=== PATIENT | male | born 1975 | race Caucasian/White ===

== ENCOUNTER → 2016-06-11 | Outpatient (CLI) | payer OTHER | LOC: FIMAGING 07:34 | PROVIDERS: ATTEND Internal Medicine | DX: E04.1 Nontoxic single thyroid nodule (principal); Z20.2 Contact with and (suspected) exposure to infections with a predominantly sexual mode of transmission; Z72.51 High risk heterosexual behavior ==

== ENCOUNTER → 2016-06-25 | Outpatient (CLI) | payer OTHER ==
[~2016-06-25] MED LIST: GADOBUTROL 10 ML VIAL IVP ONE
== END ==
LOC: FIMAGING 17:44
PROVIDERS: ATTEND Internal Medicine
DX: R47.89 Other speech disturbances (principal)
CPT/HCPCS: A9585

== ENCOUNTER 2016-09-25 07:48 | Observation (INO) | payer OTHER ==
[2016-09-25] MEDS ORDERED: LIDO/EPI 1% **Not for Epidural 20 ML MDV ONE (08:08)
[2016-09-25] MEDS ORDERED: DEXAMETHASONE 4 MG/ML VIAL ONE ×2 (08:50)
[2016-09-25] MEDS ORDERED: CEFAZOLIN 2 GM/DEXTROSE/100 ML BAG IV ONE (08:50)
[2016-09-25] MEDS ORDERED: LR 1,000 ML IV ONE (08:56)
[2016-09-25] MEDS ORDERED: MIDAZOLAM 2 MG/2 ML VIAL ONE (09:36)
[2016-09-25] MEDS ORDERED: fentaNYL 100 MCG/2 ML INJ ONE ×4 (09:40→12:39)
[2016-09-25] MEDS ORDERED: PROPOFOL/EMULSION 500 MG/50 ML BOTTLE IV ONE (09:41)
[2016-09-25] MEDS ORDERED: LIDOCAINE 2% 5 ML SDV ONE (09:59)
[2016-09-25] MEDS ORDERED: SUGAMMADEX SODIUM 200 MG/2 ML VIAL IVP ONE (09:59)
[2016-09-25] MEDS ORDERED: RANITIDINE 50 MG/2 ML VIAL ONE (09:59)
[2016-09-25] MEDS ORDERED: ONDANSETRON 4 MG/2 ML VIAL ONE ×2 (09:59)
[2016-09-25] MEDS ORDERED: ROCURONIUM 50 MG/5 ML VIAL ONE (09:59)
[2016-09-25] MEDS ORDERED: DIAZEPAM 10 MG/2 ML SYR ONE (10:01)
[2016-09-25] MEDS ORDERED: PROPOFOL 200 MG/20 ML VIAL ONE (10:35)
[2016-09-25] MEDS ORDERED: ONDANSETRON 4 MG/2 ML VIAL IVP PRN (12:25)
[2016-09-25] MEDS ORDERED: OXYCODONE/APAP 5/325 TAB ONE (13:26)
[2016-09-25] MEDS: D5W 1/2 NS W/ 20 KCl/L 1,000 ML IV SCH (16:00)
[2016-09-25] MEDS: OXYCODONE/APAP 5/325 TAB PO PRN ×2 (18:01→22:09)
--- NOTE | 2016-09-25 18:53 | SOAPPROG ---
SOAP Progress Note Assessment/Plan: Assessment: PT doing well. Plan: Likely discharge in the morning. We reviewed all the care instructions and the patient already has all his discharge meds at home. 09/25/16 18:50 Subjective: Minimal pain, and less pressure than he had preop. He just ate a meal. Objective: Vital Signs Temp Pulse Resp BP Pulse Ox 36.7 C 77 16 130/89 H 94 09/25/16 18:18 09/25/16 18:18 09/25/16 18:18 09/25/16 18:18 09/25/16 18:18 09/24/16 09/25/16 09/26/16 05:59 05:59 05:59 Intake Total 1070 Output Total 200 Balance 870 Pt looks good. Minimal blood tinged discharge in the SAMI drain. Neck is flat. - Pending Discharge Pending Discharge Within 24 Hours: Yes Pending Discharge Date: 09/26/16 Pending Discharge Time: 11:00 ICD10 Worksheet Patient Problems: Problems Problem Status Onset Thyroid adenoma Acute - ICD10 Problem Qualifiers (1) Thyroid adenoma
--- NOTE | 2016-09-25 19:10 | GOP ---
[f rep st] OPERATIVE REPORT DATE OF OPERATION: 09/25/2016 SURGEON: Zach Davis MD TRANSMISSION AND PROTECTION ENGINEER: Dr. Lon Whaley. ANESTHESIA: General. PREOPERATIVE DIAGNOSIS: Right thyroid mass. POSTOPERATIVE DIAGNOSIS: Right thyroid mass. PROCEDURE PERFORMED: Right thyroid lobectomy. FINDINGS: The recurrent laryngeal nerve and both of the parathyroid glands were identified and preserved. Frozen section evaluation was negative for evidence of malignancy. SPECIMENS: Right thyroid lobe. ESTIMATED BLOOD LOSS: 25 cc INDICATIONS: The patient is a 41-year-old male with a right-sided thyroid mass. Initial fine-needle aspiration biopsy was negative; however, Afirma Testing was positive. He presents for thyroid lobectomy for definitive diagnosis. DESCRIPTION OF PROCEDURE: Patient was taken to the OR and positively identified , placed on monitors and general endotracheal anesthesia was induced. The table was then positioned. The patient was prepped and draped in a normal sterile fashion. An incision was marked out along the anterior neck skin crease and infiltrated with 4 cc of 1% lidocaine with 1:100,000 epinephrine. The skin was sharply incised. Dissection was carried down through the platysma. Superior and inferior subplatysmal flaps were then raised and secured. The strap muscles were then divided in the midline and elevated off the right thyroid gland. The superior vascular pedicle was isolated, clamped, cut, and ligated with 2-0 silk stick tie. The dissection was then carried inferiorly along the thyroid capsule. The middle thyroid vein was isolated, clamped, cut and ligated with 3-0 silk. The lobe was rotated medially following the thyroid capsule. The parathyroid glands were identified and preserved. I eventually was able to identify the recurrent laryngeal nerve. Burgess's ligament was divided and the thyroid gland was elevated off the trachea. The inferior vascular pedicle was cross-clamped and ligated with 2-0 silk. The isthmus of the thyroid gland was then divided and oversewn with a 3-0 Vicryl suture. The right thyroid lobe was then sent for frozen section evaluation which was negative for evidence of malignancy. The wound was then irrigated with sterile saline solution and hemostasis was assured. A drain was placed through a separate stab incision and secured with a drain stitch. The wound was then closed with a 3-0 Vicryl suture to reapproximate the strap muscles and 4-0 Monocryl through the platysma and subcutaneous tissues, followed by 5-0 Prolene through the skin and a pressure dressing. The case was terminated, the anesthetic discontinued. The patient tolerated the procedure well. Dr. Lon Whaley was present and assisted throughout the entire procedure. His help was critical in the timely and safe completion of the operation. COMPLICATIONS: None. /[id number]/MODL MTDD
[2016-09-25] MEDS ORDERED: clonazePAM 0.5 MG TAB PO PRN (22:28)
[2016-09-25] MEDS ORDERED: QUEtiapine FUMARATE 200 MG TAB PO SCH (22:30)
[2016-09-25] MEDS: BENZONATATE 100 MG CAP PO PRN (22:32)
[2016-09-26] MEDS: OXYCODONE/APAP 5/325 TAB PO PRN ×2 (01:44→06:09)
[2016-09-26] MEDS: D5W 1/2 NS W/ 20 KCl/L 1,000 ML IV SCH (06:09)
[2016-09-26 07:18] VITALS: BP 136/75; PULSE 69; RESP 16; TEMP 98.1; O2SAT 92
[2016-09-26] MEDS: BENZONATATE 100 MG CAP PO PRN (07:23)
--- NOTE | 2016-09-26 08:45 | SOAPPROG ---
SOAP Progress Note Assessment/Plan: Assessment: 41 year old male POD 1 s/p right thyroid lobectomy. Doing well. Will d/c home this AM. - Drain removed - Dressing changed - D/c home today - he has prescriptions at home 09/26/16 08:44 Subjective: 41 year old male POD 1 s/p right thyroid lobectomy. Doing well. At breakfast this AM. Pain much improved. Objective: Vital Signs Temp Pulse Resp BP Pulse Ox 36.7 C 69 16 136/75 H 92 09/26/16 07:18 09/26/16 07:18 09/26/16 07:18 09/26/16 07:18 09/26/16 07:18 09/25/16 09/26/16 09/27/16 05:59 05:59 05:59 Intake Total 1570 Output Total 1100 25 Balance 470 -25 Drain with minimal output -- removed Dressing changed Neck flat OP normal Voice strong, no stridor ICD10 Worksheet Patient Problems: Problems Problem Status Onset Thyroid adenoma Acute
== END 2016-09-26 09:55 | disposition home or self-care (01) ==
LOC: F3E 07:48
PROVIDERS: ADMIT Otolaryngology; ATTEND Otolaryngology
PROC: 0GBH0ZZ Excision of Right Thyroid Gland Lobe, Open Approach (ICD-10-PCS; principal; 2016-09-25 09:00)
DX: D34 Benign neoplasm of thyroid gland (principal); F31.9 Bipolar disorder, unspecified; F41.9 Anxiety disorder, unspecified
CPT/HCPCS: 60210; G0378; J0690; J1100; J2250; J2405; J2704; J2780; J3010